=== PATIENT | male | born 1990 | race Caucasian/White ===

== ENCOUNTER 2022-03-26 15:47 | Outpatient (REF) | payer BC, SELFPAY ==
[2022-03-26 19:50] LABS: MCH 27.2 pg (27.0-33.0); MCHC 33.3 % (32.0-36.0); MCV 82 fL (80-95); MPV 9.8 fL (8.0-11.0); Platelet Count 390 10^3/uL (130-400); RBC 5.51 10^6/uL (4.36-5.78); RDW 13.1 % (11.8-14.1); RDW-SD 38.9 fL; WBC 11.08 10^3/uL (4.4-10.8)
[2022-03-26 20:13] LABS: TSH (W/Ref FT4) 0.92 uIU/mL (0.36-3.74)
== END 2022-03-26 15:48 | disposition home or self-care (01) ==
LOC: NCHCN 15:47
PROVIDERS: Visit Provider Nurse Practitioner Family
DX: F41.9 Anxiety disorder, unspecified (principal)
CPT/HCPCS: 85027; 84443

== ENCOUNTER 2023-03-24 16:28 | Outpatient (REF) | payer BC, SELFPAY ==
[2023-03-24 15:34] LABS: ALT 79 U/L (16-63); AST 25 U/L (15-37); Alkaline Phosphatase 81 U/L (46-116); Anion Gap 8.6 mmol/L (3-11); BUN 11 mg/dL (7-18); Bilirubin, Total 0.3 mg/dL (0.2-1.0); CO2 28.4 mmol/L (21.0-32.0); Calcium 9.5 mg/dL (8.5-10.1); Calculated LDL 167 mg/dL (<100); Chloride 103 mmol/L (98-107); Cholesterol 271 mg/dL (<200); Estimated GFR 101.92 (mL/min/1.73m2); Glucose 90 mg/dL (74-106); HDL Cholesterol 37 mg/dL (40-60); Potassium 4.2 mmol/L (3.5-5.1); Sodium 140 mmol/L (136-145); Total Protein 7.4 g/dL (6.4-8.2); Triglyceride 336 mg/dL (<150)
[2023-03-26 11:42] LABS: Lamotrigine 2.2 mcg/mL (3.0-15.0)
== END 2023-03-24 16:29 | disposition home or self-care (01) ==
LOC: NCHCN 16:28
PROVIDERS: PCP Nurse Practitioner Family; Visit Provider Nurse Practitioner Family
DX: F32.89 Other specified depressive episodes (principal); Z79.899 Other long term (current) drug therapy; Z51.81 Encounter for therapeutic drug level monitoring; E66.9 Obesity, unspecified
CPT/HCPCS: 80053; 80061; 80175

== ENCOUNTER 2024-03-02 18:21 | Outpatient (REF) | payer BC, SELFPAY ==
[2024-03-02 21:05] LABS: HCT 49.8 % (40.0-50.0); HGB 16.5 g/dL (13.5-17.5); MCH 27.4 pg (27.0-33.0); MCHC 33.1 % (32.0-36.0); MCV 83 fL (80-95); MPV 9.3 fL (8.0-11.0); Platelet Count 479 10^3/uL (130-400); RDW 12.9 % (11.8-14.1); RDW-SD 38.6 fL; WBC 9.09 10^3/uL (4.4-10.8)
[2024-03-02 21:31] LABS: Hemoglobin A1C 5.7 % (<5.7)
[2024-03-02 22:07] LABS: RBC 6.03 10^6/uL (4.36-5.78)
[2024-03-02 22:27] LABS: ALT 85 U/L (16-63); AST 33 U/L (15-37); Alkaline Phosphatase 89 U/L (46-116); Anion Gap 9.2 mmol/L (3-11); BUN 13 mg/dL (7-18); Bilirubin, Total 0.23 mg/dL (0.2-1.0); CO2 27.8 mmol/L (21.0-32.0); CREATININE 1.1 mg/dL (0.70-1.30); Calculated LDL 179 mg/dL (<100); Chloride 103 mmol/L (98-107); Cholesterol 273 mg/dL (<200); Estimated GFR 90.34 (mL/min/1.73m2); Glucose 82 mg/dL (74-106); HDL Cholesterol 37 mg/dL (40-60); Potassium 4.4 mmol/L (3.5-5.1); Sodium 140 mmol/L (136-145); TSH (W/Ref FT4) 1.58 uIU/mL (0.36-3.74); Total Protein 7.5 g/dL (6.4-8.2); Triglyceride 286 mg/dL (<150)
== END 2024-03-02 18:22 | disposition home or self-care (01) ==
LOC: NCHCN 18:21
PROVIDERS: PCP Nurse Practitioner Family; Visit Provider Nurse Practitioner Family
DX: Z00.00 Encounter for general adult medical examination without abnormal findings (principal); R79.89 Other specified abnormal findings of blood chemistry; E66.9 Obesity, unspecified; Z13.29 Encounter for screening for other suspected endocrine disorder; Z13.1 Encounter for screening for diabetes mellitus
CPT/HCPCS: 80053; 80061; 85027; 83036; 84443